=== PATIENT | male | born 1955 | race Caucasian/White ===

== ENCOUNTER 2021-11-10 01:28 | Emergency (ER) | payer OTHER ==
[~2021-11-10] VITALS: Ht 177.8 cm; Wt 99.8 kg
[2021-11-10 02:10] LABS: HEMATOCRIT 42.4 % (36.7-47.1); MEAN CORPUSCULAR HEMOGLOBIN 31.8 uug (23.8-33.4); MEAN CORPUSCULAR VOLUME 93.5 fL (73.0-96.2); PLATELET COUNT (AUTO) 122 K/uL (152-348)
[2021-11-10 02:12] LABS: CARBON DIOXIDE 33 mmol/L (21-32); CHLORIDE 97 mmol/L (98-107); CREATININE 1.1 mg/dL (0.6-1.3); GLUCOSE 295 mg/dL (74-106); POTASSIUM 3.7 mmol/L (3.5-5.1); UREA NITROGEN, BLOOD 19 mg/dL (7-18)
--- NOTE | 2021-11-10 02:24 | NUR ---
pt taken to CT
[2021-11-10 02:29] LABS: *BILIRUBIN,URIN NEGATIVE (NEGATIVE); *BLOOD, URINE 2+ (NEGATIVE); *CLARITY,URINE CLEAR (CLEAR); *COLOR,URINE YELLOW (YELLOW); *KETONES,URINE TRACE (NEGATIVE); LEUKOCYTE ESTERASE ,URINE NEGATIVE (NEGATIVE); NITRITE, URINE NEGATIVE (NEGATIVE); PH,URINE 8.5 (5.0-8.0); UGLUCOSE 2+ (NEGATIVE)
[2021-11-10 02:30] LABS: ALANINE AMINOTRANSFERASE < 6 U/L (16-63); ALKALINE PHOSPHATASE 58 U/L (50-136); ASPARTATE AMINOTRANSFERASE 5 U/L (15-37); BILIRUBIN,DIRECT 0.1 mg/dL (0.0-0.2); BILIRUBIN,TOTAL 0.4 mg/dL (0.2-1.0); TOTAL PROTEIN, SERUM 6.8 g/dL (6.4-8.2)
--- NOTE | 2021-11-10 02:37 | NUR ---
pt returned from CT
[2021-11-10 02:38] LABS: THYROID STIMULATING HORMONE 1.853 mIU/mL (0.358-3.740)
[2021-11-10 02:42] LABS: ETHANOL < 3 MG/DL (0-0)
[2021-11-10 02:43] LABS: ACETAMINOPHEN < 2.0 ug/mL (10-30)
[2021-11-10 02:55] LABS: *AMPHETAMINE, URINE NEGATIVE (NEGATIVE); *CANNABINOID, URINE NEGATIVE (NEGATIVE); *COCCAINE, URINE NEGATIVE (NEGATIVE); *OPIATE, URINE NEGATIVE (NEGATIVE); *PHENCYCLIDINE SCREEN,URINE NEGATIVE (NEGATIVE)
[2021-11-10 02:59] LABS: BACTERIA,URINE FEW /HPF (NONE SEEN); RBC,URINE 20-50 /HPF (0-3)
[2021-11-10 03:00] LABS: SQUAMOUS EPITHELIAL CELL,UR FEW /HPF (NONE SEEN)
--- NOTE | 2021-11-10 03:26 | NUR ---
Spoke with [facility]. They will call back for doctor to doctor
--- NOTE | 2021-11-10 08:05 | NUR ---
Dr Guillaume vergara to [facility], no transfer info provided at this time.
--- NOTE | 2021-11-10 10:39 | NUR ---
Report given to [facility], [facility]. ETA for pickup is 45 min.
--- NOTE | 2021-11-10 11:00 | NUR ---
Pt's Kim notified of pt's transfer to [facility], and agreed. Pt made aware.
--- NOTE | 2021-11-10 11:47 | NUR ---
Report given to transfering leasing assistant.
--- NOTE | 2021-11-10 11:52 | NUR ---
Pt [facility], all belongings sent w/ pt.
== END 2021-11-10 11:53 | disposition short-term general hospital (02) ==
LOC: ER 01:39
DX: R53.1 Weakness (principal); R00.0 Tachycardia, unspecified; I87.8 Other specified disorders of veins; G31.84 Mild cognitive impairment of uncertain or unknown etiology; E11.42 Type 2 diabetes mellitus with diabetic polyneuropathy; E11.51 Type 2 diabetes mellitus with diabetic peripheral angiopathy without gangrene; I25.2 Old myocardial infarction; G40.909 Epilepsy, unspecified, not intractable, without status epilepticus; I11.0 Hypertensive heart disease with heart failure; I50.20 Unspecified systolic (congestive) heart failure; E11.319 Type 2 diabetes mellitus with unspecified diabetic retinopathy without macular edema; Z20.822 Contact with and (suspected) exposure to COVID-19
CPT/HCPCS: 36415; 70450; 71045; 83605; 84443; 84484; 85025; 85730; 87040; 87086; 93005; A4663; C1758; G0480